=== PATIENT | male | born 1955 | race Two or more races ===

== ENCOUNTER 2022-05-16 11:15 | Inpatient (IN) | payer OTHER ==
[~2022-05-16] VITALS: Ht 167.6 cm; Wt 81.6 kg
[2022-05-16] MEDS ORDERED: COZAAR100 MG PO (13:04)
[2022-05-16] MEDS ORDERED: OMEPRA PO (13:05)
== END 2022-05-21 14:32 | disposition home or self-care (01) | DRG 331 ==
LOC: SURG 05-19 06:38 → O/R 05-19 06:38 → SURH 05-19 10:00 → SURG 05-19 11:50
PROVIDERS: ADMIT Surgery; ATTEND Surgery
PROC: 0DTH4ZZ Resection of Cecum, Percutaneous Endoscopic Approach (ICD-10-PCS; principal; 2022-05-19 10:00)
DX: D12.0 Benign neoplasm of cecum (principal); D12.1 Benign neoplasm of appendix; Z86.010 Personal history of colon polyps; Z20.822 Contact with and (suspected) exposure to COVID-19